=== PATIENT | male | born 1965 | race Caucasian/White ===

== ENCOUNTER → 2018-04-19 | Outpatient (CLI) | END | disposition home or self-care (01) ==

== ENCOUNTER 2019-07-07 06:22 | Day surgery (SDC) | payer OTHER ==
[~2019-07-07] VITALS: Ht 165.1 cm; Wt 82.0 kg
[~2019-07-07 06:22] MED LIST: BICT1TAB PO; FAMO-96 PO; GEMF600T8 PO; lipitor PO
[2019-07-07 07:15] VITALS: BP 158/96; PULSE 60; RESP 19
[2019-07-07 07:35] VITALS: Ht 165.1 cm; Wt 82.0 kg
[2019-07-07] MEDS ORDERED: LIDOCAINE 2% (SDV) 5 ML INJ ONE (07:41)
[2019-07-07] MEDS ORDERED: PROPOFOL 40 ML ONE (07:41)
[2019-07-07 08:10] VITALS: BP 125/73; RESP 18
[2019-07-07] MEDS ORDERED: ONDANSETRON 4 MG INJ IV PRN (08:30)
[2019-07-07] MEDS ORDERED: ALBUTEROL 0.083% (NEB) 2.5 MG/3 ML AMP HHN PRN (08:30)
[2019-07-07] MEDS ORDERED: hydrALAzine 20 MG INJ IV PRN (08:30)
[2019-07-07] MEDS ORDERED: LABETALOL HCL 20MG INJ IV PRN (08:30)
[2019-07-07] MEDS ORDERED: EPHEDrine 25 MG/5 ML SYG IV PRN (08:30)
[2019-07-07] MEDS ORDERED: FENTAnyl 50 MCG/ML VIAL IV PRN (08:30)
== END 2019-07-07 14:32 | disposition home or self-care (01) ==
LOC: GIL 06:22
PROVIDERS: ATTEND Internal Medicine Gastroenterology
DX: Z12.11 Encounter for screening for malignant neoplasm of colon (principal)